=== PATIENT | male | born 1985 | race American Indian/Alaskan Native ===

== ENCOUNTER 2018-03-02 08:01 | Emergency (ER) | payer OTHER ==
[2018-03-02] MEDS ORDERED: ZOFRAN IV ONE (08:17)
[2018-03-02] MEDS ORDERED: TORADOL IV ONE (08:17)
[2018-03-02] MEDS ORDERED: TYLENOL PO ONE (08:17)
[2018-03-02 08:43] LABS: Basophils # (Auto) 0.1 K/mm3 (0.0-0.1); Basophils % (Auto) 0.7 % (0.0-1.8); Eosinophils # (Auto) 0.3 K/mm3 (0.0-0.4); Eosinophils % (Auto) 2.3 % (0.0-4.3); Hematocrit 42.2 % (35.5-45.6); Lymphocytes # (Auto) 2.7 K/mm3 (1.2-5.4); Lymphocytes % (Auto) 23.2 % (13.4-35.0); Mean Corpuscular HGB Conc 36 % (32-34); Mean Corpuscular Hemoglobin 32 pg (28-32); Mean Corpuscular Volume 92 fl (84-94); Monocytes # (Auto) 1.3 K/mm3 (0.0-0.8); Monocytes % (Auto) 11.4 % (0.0-7.3); Platelet Count 410 K/mm3 (140-440); Red Blood Count 4.62 M/mm3 (3.65-5.03); Red Cell Distribution Width 12.6 % (13.2-15.2)
[2018-03-02 09:04] LABS: BUN/Creatinine Ratio 16; Blood Urea Nitrogen 13 mg/dL (9-20); Calcium 9.1 mg/dL (8.4-10.2); Hemolysis Index 9
--- NOTE | 2018-03-02 09:18 | Ultrasound Report ---
FINAL REPORT EXAM: US TESTICULAR DOPPLER COMP HISTORY: RIGHT TESTICULAR PAIN TECHNIQUE: Testicular ultrasound. PRIORS: None currently available. FINDINGS: RIGHT TESTICLE: 3.0 x 2.0 x 2.4 cm. Smooth homogeneous echotexture. Flow is present. Microlithiasis. Right epididymis is enlarged with increased flow. Right scrotal wall thickening. Small right hydrocele. LEFT TESTICLE: 3.9 x 1.8 x 2.1 cm. Smooth homogeneous echotexture. Flow is present. Microlithiasis. Left epididymis is within normal limits. IMPRESSION: Bilateral microlithiasis. Suspect right epididymitis with associated scrotal wall thickening and small right hydrocele.
[2018-03-02 10:43] LABS: Bilirubin,Urine NEG (Negative); Blood,Urine NEG (Negative); Color,Urine Yellow (Yellow); Mucus,Urine 1+ /HPF
[2018-03-02 10:44] LABS: WBC,Urine > 182.0 /HPF (0.0-6.0)
[2018-03-02] MEDS ORDERED: VIBRAMYCIN PO ONE (12:01)
[2018-03-02] MEDS ORDERED: XYLOCAINE 1% MPF 5 mL INFILTRATI ONE (12:01)
[2018-03-02] MEDS ORDERED: ROCEPHIN IM ONE (12:01)
--- NOTE | 2018-03-02 12:05 | Emergency Department Report ---
HPI - General Chief Complaint: Urogenital-Male Time Seen by Provider: 03/02/18 08:17 - HPI HPI: The patient is a 32-year-old male presents for evaluation of testicular pain. The patient reports right testicular pain and swelling since awakening this morning, possibly 4 hours prior to arrival. He states that his pain has been constant since onset, progressive, currently moderate in severity, exacerbated with movement or bending over, and pressure-like in quality. The patient denies fever, some to the testicles, chills, night sweats, diarrhea, blood in the stool , dark tarry stool, dysuria, hematuria, flank pain, inability to pass flatus. ED Past Medical Hx - Past Medical History Previous Medical History?: Yes Hx Hypertension: Yes Hx Congestive Heart Failure: No Hx Diabetes: No Hx Asthma: No Hx COPD: No Hx HIV: No - Surgical History Past Surgical History?: No - Social History Smoking Status: Current Every Day Smoker Substance Use Type: Alcohol, Marijuana - Medications Home Medications: Home Medications Medication Instructions Recorded Confirmed Last Taken Type HYDROcodone/APAP 5-325 [[place] 1 each PO Q6H PRN #10 tablet 11/02/14 Unknown Rx 5-325 mg TAB] Levofloxacin [Levaquin TAB] 750 mg PO Q24HR #5 tablet 11/02/14 Unknown Rx Metoprolol [Lopressor TAB] 25 mg PO BID #60 tablet 11/02/14 Unknown Rx Doxycycline Hyclate [Doxycycline 100 mg PO Q12HR #20 tab 03/02/18 Unknown Rx Hyclate TAB] HYDROcodone/APAP 5-325 [[place] 1 each PO Q6HR PRN #14 tablet 03/02/18 Unknown Rx 5/325] Ibuprofen [Motrin] 800 mg PO Q8HR PRN #15 tablet 03/02/18 Unknown Rx ED Review of Systems ROS: Stated complaint: TESTICLE PAIN Other details as noted in HPI Constitutional: denies: fever ENT: denies: throat or neck pain Respiratory: denies: cough, shortness of breath Cardiovascular: denies: chest pain Endocrine: denies unexplained weight loss or gain Gastrointestinal: denies: abdominal pain, nausea Genitourinary: reports testicular pain denies: dysuria Musculoskeletal: denies: leg swelling Skin: denies: rash Neurological: denies: headache Hematological/Lymphatic: denies: easy bleeding or easy bruising Psych: denies sadness or hopelessness Physical Exam - Physical Exam Vital Signs: Vital Signs 03/02/18 03/02/18 03/02/18 08:03 09:08 09:44 Temperature 99 F Pulse Rate 104 H Respiratory 18 18 18 Rate Blood Pressure 144/97 O2 Sat by Pulse 99 98 Oximetry Physical Exam: General: well-nourished, well-developed, no acute distress Head: Normocephalic, atraumatic Eyes: normal sclera ENT: Mucous membranes are pink and moist Neck: trachea midline, neck supple, No neck stiffness, no cervical adenopathy Respiratory: Breath sounds equal bilaterally, no wheezing, rales, or rhonchi Cardio: S1 and S2 present, no murmurs, rubs, gallops, capillary refill is brisk Abdomen: Normoactive bowel sounds, soft abdomen, no rigidity, no guarding or rebound tenderness : right testicular swelling and tenderness present Chest WALL/Back: No tenderness to palpation of the chest wall, no CVA tenderness with percussion Musc: No pitting edema Skin: No rash Neuro: no facial drooping, normal speech Psych: Normal affect ED Course Vital Signs 03/02/18 03/02/18 03/02/18 08:03 09:08 09:44 Temperature 99 F Pulse Rate 104 H Respiratory 18 18 18 Rate Blood Pressure 144/97 O2 Sat by Pulse 99 98 Oximetry ED Medical Decision Making - Lab Data Result diagrams: 03/02/18 08:27 03/02/18 08:27 - Medical Decision Making The patient was seen and examined by myself. The patient is placed on a cardiac technician and continuous pulse ox. On initial evaluation, the patient was found to be in no distress. Evaluation orders were placed. The patient is given IV Toradol for his pain. Lab results revealed elevated urine WBC are positive leukocyte esterase. Ultrasound of the right testicle reveals acute epididymitis, and was negative for findings concerning for testicular torsion. The patient is given IM Rocephin and doxycycline for treatment of epididymitis. The patient is given prescriptions for antibiotics outpatient. The patient was reevaluated and reported that their symptoms were markedly improved. The patient is stable for discharge with outpatient follow-up. The patient is given follow-up and return instructions. The patient expressed understanding and agreed with the plan. The patient is discharged in stable condition. Critical care attestation.: If time is entered above; I have spent that time in minutes in the direct care of this critically ill patient, excluding procedure time. ED Disposition Clinical Impression: Acute epididymitis, Hydrocele in adult Disposition: TO HOME OR SELFCARE Is pt being admited?: No Does the pt Need Aspirin: No Condition: Stable Instructions: Epididymitis (ED), Hydrocele (ED), Testicle Pain (ED) Prescriptions: Doxycycline Hyclate [Doxycycline Hyclate TAB] 100 mg PO Q12HR #20 tab HYDROcodone/APAP 5-325 [[place] 5/325] 1 each PO Q6HR PRN #14 tablet PRN Reason: Pain Ibuprofen [Motrin] 800 mg PO Q8HR PRN #15 tablet PRN Reason: Pain Referrals: WAYLON VELOZ MD [Referring] - 3-5 Days Forms: STI Treatment and Prevention, Work/School Release Form(ED) Time of Disposition: 12:02
[2018-03-02 12:36] VITALS: BP 132/78
== END 2018-03-02 12:35 | disposition home or self-care (01) ==
LOC: ED 08:01
DX: N45.1 Epididymitis (principal); N43.3 Hydrocele, unspecified; I10 Essential (primary) hypertension; F17.200 Nicotine dependence, unspecified, uncomplicated; F12.10 Cannabis abuse, uncomplicated; Z91.030 Bee allergy status
CPT/HCPCS: 36415; 80048; 81001; 85025; 93975; 96372; 96374; 99284; J0696; J1885; J2405